=== PATIENT | female | born 1950 | race Caucasian/White ===

== ENCOUNTER 2021-08-09 21:02 | Inpatient (IN) | payer MEDICARE, OTHER ==
[~2021-08-09] VITALS: Ht 162.6 cm; Wt 47.2 kg
[2021-08-09 23:23] LABS: HEMOGLOBIN 10.1 gm/dl (12.3-15.3); RED BLOOD COUNT 4.44 M/UL (4.00-5.10); WHITE BLOOD COUNT 16.1 K/UL (4.5-11.0)
[2021-08-09 23:50] LABS: BUN/CREATININE RATIO 35 (0-10)
[2021-08-10 04:28] LABS: HEMOGLOBIN 9.7 gm/dl (12.3-15.3); RED BLOOD COUNT 4.25 M/UL (4.00-5.10); WHITE BLOOD COUNT 15.5 K/UL (4.5-11.0)
[2021-08-10 04:53] LABS: BUN/CREATININE RATIO 39 (0-10)
[2021-08-10] MEDS ORDERED: LEVOTHYROXINE50 MCG PO (09:13)
[2021-08-10] MEDS ORDERED: DOXYCYCLINE MO100 MG PO (09:14)
[2021-08-10] MEDS ORDERED: OMEPRAZOLE40 MG PO (09:14)
[2021-08-10] MEDS ORDERED: ROPINIROLE HC0.25 MG PO (09:16)
[2021-08-10] MEDS ORDERED: PROVENTIL HFA6.7 GM INH (09:17)
[2021-08-10] MEDS ORDERED: PROCARDIA XL60 MG PO (10:38)
[2021-08-10] MEDS ORDERED: IBU800 MG PO (10:39)
[2021-08-10 13:29] LABS: BUN/CREATININE RATIO 41 (0-10)
[2021-08-11 07:42] LABS: HEMOGLOBIN 9.7 gm/dl (12.3-15.3); RED BLOOD COUNT 4.31 M/UL (4.00-5.10); WHITE BLOOD COUNT 13.4 K/UL (4.5-11.0)
[2021-08-13 04:09] LABS: RED BLOOD COUNT 4.4 M/UL (4.00-5.10); WHITE BLOOD COUNT 10.8 K/UL (4.5-11.0)
[2021-08-13 04:29] LABS: BUN/CREATININE RATIO 43 (0-10)
--- NOTE | 2021-08-13 09:09 | NUR ---
When patient wears supplemental 02 via 2L NC, oxygen sats stay between 95-98% When patient is on room air, oxygen sats stay at 85-88%.
--- NOTE | 2021-08-13 09:59 | NUR ---
On room air patient drops to 85%
[2021-08-13] MEDS ORDERED: IPRAT-ALBUT 0.5-3 ML NEB (15:49)
[2021-08-13] MEDS ORDERED: NICOTINE PATCH1 EAC2 TOP (15:49)
[2021-08-13] MEDS ORDERED: SYMBICORT 80-10.2 GM INH (15:53)
== END 2021-08-13 17:02 | disposition home or self-care (01) | DRG 189 ==
LOC: ER1 21:02 → M/S 08-10 01:05 → CDU 08-10 01:05 → M/S 08-10 13:04
PROVIDERS: Emergency Medicine; Internal Medicine; ADMIT Internal Medicine
DX: J96.21 Acute and chronic respiratory failure with hypoxia (principal); E43 Unspecified severe protein-calorie malnutrition; J44.1 Chronic obstructive pulmonary disease with (acute) exacerbation; J44.0 Chronic obstructive pulmonary disease with (acute) lower respiratory infection; Z20.822 Contact with and (suspected) exposure to COVID-19; Z66 Do not resuscitate; D63.8 Anemia in other chronic diseases classified elsewhere; G25.81 Restless legs syndrome; D50.9 Iron deficiency anemia, unspecified; K21.9 Gastro-esophageal reflux disease without esophagitis; I10 Essential (primary) hypertension; J20.9 Acute bronchitis, unspecified; E03.9 Hypothyroidism, unspecified; F17.210 Nicotine dependence, cigarettes, uncomplicated; Z99.81 Dependence on supplemental oxygen; Z90.710 Acquired absence of both cervix and uterus; Z83.3 Family history of diabetes mellitus; Z82.49 Family history of ischemic heart disease and other diseases of the circulatory system; Z88.5 Allergy status to narcotic agent; Z88.0 Allergy status to penicillin; Z68.21 Body mass index [BMI] 21.0-21.9, adult
CPT/HCPCS: 0240U; 36415; 36600; 71045; 80048; 80053; 82550; 82553; 82803; 83735; 83880; 84100; 84439; 84443; 84484; 85025; 86140; 87070; 87205; 93005; 94640; 94664; 94667; 94760; 96374; 96375; 99285; C9113; J0696; J1650; J2920

== ENCOUNTER 2022-01-20 21:53 | Inpatient (IN) | payer MEDICARE, OTHER ==
[~2022-01-20] VITALS: Ht 162.6 cm; Wt 53.3 kg
[~2022-01-20 21:53] MED LIST: DOXYCYCLINE MO100 MG PO; IBU800 MG PO; IPRAT-ALBUT 0.5-3 ML NEB; LEVOTHYROXINE50 MCG PO; NICOTINE PATCH1 EAC2 TOP; OMEPRAZOLE40 MG PO; PROCARDIA XL60 MG PO; PROVENTIL HFA6.7 GM INH; ROPINIROLE HC0.25 MG PO; SYMBICORT 80-10.2 GM INH
[2022-01-20 22:53] LABS: HEMOGLOBIN 9.2 gm/dl (12.3-15.3); RED BLOOD COUNT 4.58 M/UL (4.00-5.10); WHITE BLOOD COUNT 10.7 K/UL (4.5-11.0)
[2022-01-20 23:16] LABS: BUN/CREATININE RATIO 13 (0-10)
[2022-01-21 02:22] LABS: HEMOGLOBIN 8.8 gm/dl (12.3-15.3); RED BLOOD COUNT 4.33 M/UL (4.00-5.10)
[2022-01-21 02:40] LABS: BUN/CREATININE RATIO 13 (0-10)
[2022-01-21] MEDS ORDERED: MECLIZINE HCL25 MG PO (13:50)
[2022-01-21] MEDS ORDERED: ALPRAZOLAM0.5 MG PO (13:51)
[2022-01-21] MEDS ORDERED: PREDNISONE 10 M10 MG PO (13:52)
[2022-01-21] MEDS ORDERED: MULTI-VITAMIN1 EACH PO (13:52)
[2022-01-21] MEDS ORDERED: ALBUTEROL2.5 MG/3 M NEB (13:53)
[2022-01-21] MEDS ORDERED: CHILDREN'S100 MG/5 M PO (13:54)
[2022-01-21] MEDS ORDERED: ADULT LOW DOSE81 MG PO (13:55)
[2022-01-22 03:36] LABS: HEMOGLOBIN 8.1 gm/dl (12.3-15.3); WHITE BLOOD COUNT 8.1 K/UL (4.5-11.0)
[2022-01-22 03:37] LABS: RED BLOOD COUNT 3.47 M/UL (4.00-5.10)
[2022-01-22 03:48] LABS: BUN/CREATININE RATIO 23 (0-10)
[2022-01-22 16:14] LABS: HEMATOCRIT 26.3 % (34.0-46.6)
[2022-01-23 08:06] LABS: BUN/CREATININE RATIO 24 (0-10)
[2022-01-23 08:59] LABS: HEMOGLOBIN 7.1 gm/dl (12.3-15.3); RED BLOOD COUNT 3.69 M/UL (4.00-5.10); WHITE BLOOD COUNT 6.1 K/UL (4.5-11.0)
--- NOTE | 2022-01-23 16:56 | NUR ---
ATTEMPTED TO PLACE COMPRESSION DEVICES ON PATIENT, BLE. PT. REFUSES TO ALLOW PLACEMENT. STATES SHE IS NOT WEARING THOSE.
[2022-01-24 03:10] LABS: RED BLOOD COUNT 3.26 M/UL (4.00-5.10)
[2022-01-24 03:11] LABS: HEMOGLOBIN 6.6 gm/dl (12.3-15.3)
[2022-01-24 03:50] LABS: BUN/CREATININE RATIO 30 (0-10)
--- NOTE | 2022-01-24 21:36 | NUR ---
1900-EDUCATED PATIENT ON THE IMPORTANCE OF USING HER CALL LIGHT TO CALL OUT IF SHE NEEDED ANYTHING OR TO GET UP. PATIENT EDUCATED ON FALL RISK PRECAUTIONS. PATIENT STATED "IM NOT GOING TO CALL OUT EVERYTIME I GOT TO GET UP TO THE BATHROOM"
[2022-01-25 09:20] LABS: HEMOGLOBIN 8.3 gm/dl (12.3-15.3)
[2022-01-26 04:28] LABS: HEMOGLOBIN 7.6 gm/dl (12.3-15.3); RED BLOOD COUNT 3.45 M/UL (4.00-5.10); WHITE BLOOD COUNT 6.4 K/UL (4.5-11.0)
[2022-01-26 04:42] LABS: BUN/CREATININE RATIO 30 (0-10)
[2022-01-26 17:33] LABS: HEMOGLOBIN 10.5 gm/dl (12.3-15.3)
[2022-01-27 02:37] LABS: RED BLOOD COUNT 4.23 M/UL (4.00-5.10); WHITE BLOOD COUNT 8.7 K/UL (4.5-11.0)
[2022-01-27 03:00] LABS: BUN/CREATININE RATIO 32 (0-10)
[2022-01-28 03:16] LABS: HEMOGLOBIN 10.5 gm/dl (12.3-15.3); RED BLOOD COUNT 4.41 M/UL (4.00-5.10); WHITE BLOOD COUNT 8.1 K/UL (4.5-11.0)
[2022-01-28 03:33] LABS: BUN/CREATININE RATIO 34 (0-10)
[2022-01-28] MEDS ORDERED: ATORVASTATIN CA20 MG PO (11:27)
[2022-01-28] MEDS ORDERED: TRAMADOL HCL50 MG PO (11:27)
[2022-01-29 03:06] LABS: HEMOGLOBIN 10.9 gm/dl (12.3-15.3); RED BLOOD COUNT 4.55 M/UL (4.00-5.10); WHITE BLOOD COUNT 7.1 K/UL (4.5-11.0)
[2022-01-29 03:36] LABS: BUN/CREATININE RATIO 46 (0-10)
[2022-01-30 04:48] LABS: HEMOGLOBIN 11.6 gm/dl (12.3-15.3); RED BLOOD COUNT 4.79 M/UL (4.00-5.10); WHITE BLOOD COUNT 6.8 K/UL (4.5-11.0)
[2022-01-30 05:01] LABS: BUN/CREATININE RATIO 46 (0-10)
[2022-01-30] MEDS ORDERED: FERROUS SULFAT325 M2 PO (10:18)
[2022-01-30] MEDS ORDERED: PROTONIX 40 MG40 M1 PO (10:18)
== END 2022-01-30 19:14 | disposition home or self-care (01) | DRG 812 ==
LOC: ER1 21:53 → CDU 01-21 00:30 → M/S 01-21 00:30
PROVIDERS: Family Medicine; Internal Medicine; Physician Assistant; Surgery; ADMIT Internal Medicine
PROC: 30233N1 Transfusion of Nonautologous Red Blood Cells into Peripheral Vein, Percutaneous Approach (ICD-10-PCS; 2022-01-24)
PROC: 0DJ08ZZ Inspection of Upper Intestinal Tract, Via Natural or Artificial Opening Endoscopic (ICD-10-PCS; principal; 2022-01-25 12:30)
PROC: 0DJD8ZZ Inspection of Lower Intestinal Tract, Via Natural or Artificial Opening Endoscopic (ICD-10-PCS; 2022-01-25 12:30)
DX: D50.9 Iron deficiency anemia, unspecified (principal); J96.11 Chronic respiratory failure with hypoxia; E44.1 Mild protein-calorie malnutrition; I65.22 Occlusion and stenosis of left carotid artery; I10 Essential (primary) hypertension; R42 Dizziness and giddiness; E87.6 Hypokalemia; F41.9 Anxiety disorder, unspecified; J44.9 Chronic obstructive pulmonary disease, unspecified; F17.210 Nicotine dependence, cigarettes, uncomplicated; H53.8 Other visual disturbances; R13.10 Dysphagia, unspecified; E03.9 Hypothyroidism, unspecified; Z90.710 Acquired absence of both cervix and uterus; Z90.49 Acquired absence of other specified parts of digestive tract; Z88.5 Allergy status to narcotic agent; Z88.0 Allergy status to penicillin; Z88.8 Allergy status to other drugs, medicaments and biological substances; Z91.041 Radiographic dye allergy status; Z82.49 Family history of ischemic heart disease and other diseases of the circulatory system; Z82.5 Family history of asthma and other chronic lower respiratory diseases; Z99.81 Dependence on supplemental oxygen
CPT/HCPCS: 36415; 70450; 70496; 70498; 70551; 71045; 80048; 80053; 81001; 82272; 82550; 82553; 82607; 82728; 82747; 83540; 83550; 83605; 83735; 84439; 84443; 84484; 85014; 85018; 85025; 85027; 86850; 86870; 86900; 86901; 86902; 86920; 86922; 93005; 93880; 94640; 94664; 94760; 96372; 96374; 96375; 96376; 97161; 99285; C1751; G0378; J0696; J1650; J1756; J2920; J7040; P9016; Q9967